=== PATIENT | female | born 1975 | race Two or more races ===

== ENCOUNTER 2023-03-03 12:41 | Emergency (ER) | payer OTHER, SELFPAY ==
--- NOTE | ~2023-03-03 | XR_ITS ---
XR finger 5th LT min 2V DATE: 03/03/2023 13:21 INDICATION: Injury 2 days ago. Pain and swelling of the fifth digit TECHNIQUE: 4 views COMPARISON: 03/03/2023 ( FINDINGS: There is a linear intra-articular fracture of the base of the distal phalanx of the fifth d igit, with less than 1 mm dorsal displacement, no medial or lateral displacement, no significant angu lation. No other fracture or dislocation of the fifth digit is detected. IMPRESSION: Linear intra-articular fracture of the base of the distal phalanx of the fifth digit Reviewed, dictated and finalized at location A. IMPRESSION: Linear intra-articular fracture of the base of the distal phalanx o f the fifth digit
--- NOTE | ~2023-03-03 | XR_ITS ---
XR hand LT min 3V DATE: 03/03/2023 13:22 INDICATION: Injury 2 days ago. Pain and swelling of fifth digit TECHNIQUE: 3 views of left hand COMPARISON: None FINDINGS: There is a linear intra-articular fracture of the base of the distal findings of the fifth digit with less than a millimeter dorsal displacement. No other fracture or dislocation. IMPRESSION: Linear intra-articular fracture of the base of the distal phalanx of the fifth digit Reviewed, dictated and finalized at location A. IMPRESSION: Linear intra-articular fracture of the base of the distal phalanx o f the fifth digit
[2023-03-03 12:50] VITALS: BP 125/73; PULSE 81; RESP 16; TEMP 36.4; O2SAT 99
--- NOTE | 2023-03-03 14:05 | ED.UPPEXIN ---
HPI - Extremity Injury (Upper) General Chief Complaint: Extremity Injury, Upper Stated Complaint: left hand injury Time Seen by Provider: 03/03/23 13:26 Source: patient and RN notes reviewed Mode of arrival: ambulatory Limitations: no limitations History of Present Illness HPI narrative: This is a 48 year old female left hand dominant who presents for evaluation of left hand pain and swelling. Patient states 2 days ago she accidentally fell onto her hands. She has been having bruising and swelling to her left hand. She also notices the worst pain is to her left pinkie. She denies hitting her head or LOC. She takes plavix for history of CVA few years ago. Related Data Allergies Allergy/AdvReac Type Severity Reaction Status Date / Time No Known Allergies Allergy Verified 03/03/23 13:41 Review of Systems Constitutional: Constitutional: Denies weakness Cardiovascular: Cardiovascular: Denies syncope, Denies rapid heart rate, Denies irregular heart rhythm, Denies leg edema and Denies dyspnea Respiratory: Respiratory: Denies chest congestion, Denies hemoptysis, Denies excessive phlegm production and Denies dyspnea Gastrointestinal: Gastrointestinal: Denies abdominal pain, Denies hematochezia, Denies diarrhea and Denies vomiting Genitourinary: Genitourinary: Denies hematuria and Denies dysuria Musculoskeletal: Musculoskeletal: Reports arthralgias, Denies joint swelling, Denies loss of height and Denies muscle weakness Neurologic: Denies syncope, Denies focal weakness and Denies weakness PMFSH Past Medical History Medical History (Updated 03/03/23 @ 21:44 by Molly Liz MD) CVA (cerebral vascular accident) Surgical History Surgical History (Updated 03/03/23 @ 21:44 by Molly Liz MD) No pertinent past surgical history Social History Social History (Updated 03/03/23 @ 21:44 by Molly Liz MD) Smoking status: Never smoker Exam Const: General: no acute distress and alert Nutritional Appearance: well nourished Orientation/consciousness: patient oriented x3 Limitations: no limitations HENMT: Head: normal to inspection Face and sinus: normal facial exam Eyes: EOM: EOMs intact bilaterally Resp: Effort & Inspection: normal respiratory effort Neuro: General: patient oriented x3, moves all extremities and CN's II-XI intact bilaterally Extrem: Other: left hand - all fingers and hand is swollen, bruising noted to left palm, TTP left 5th distal finger Psych: Mental Status: mental status grossly normal Affect: normal affect Attitude: cooperative Course Reevaluation(s) Reevaluation #1: I Discussed with patient that she was found to have 5th finger distal phalanx fracture. She was placed in metal splint. I discussed icing and elevating to reduce swelling. She denies any pain so nothing for pain given. She denies any questions or concerns. I discussed discharge plan and follow up Date: 03/03/23 Time: 14:20 Vital Signs Vital signs: Vital Signs Temperature 97.6 F 03/03/23 12:50 Pulse Rate 81 03/03/23 12:50 Respiratory Rate 16 03/03/23 12:50 Blood Pressure 125/73 03/03/23 12:50 Pulse Oximetry 99 03/03/23 12:50 Oxygen Delivery Room Air 03/03/23 12:50 Temperature 97.6 F 03/03/23 12:50 Pulse Rate 81 03/03/23 12:50 Respiratory Rate 16 03/03/23 12:50 Blood Pressure 125/73 03/03/23 12:50 Pulse Oximetry 99 03/03/23 12:50 Oxygen Delivery Room Air 03/03/23 12:50 MDM - Extremity Injury (Upper) Differential Diagnosis Differential diagnosis: Likely finger sprain, dislocation of finger, fracture of hand and other (finger fracture) Imaging Data Radiologist's impression: ITS Impressions Finger X-Ray 03/03/23 13:42 IMPRESSION: Linear intra-articular fracture of the base of the distal phalanx of the fifth digit Hand X-Ray 03/03/23 13:45
== END 2023-03-03 14:35 | disposition home or self-care (01) ==
PROVIDERS: Emergency Provider General Practice
DX: S62.637A Displaced fracture of distal phalanx of left little finger, initial encounter for closed fracture (principal); S60.222A Contusion of left hand, initial encounter; Z86.73 Personal history of transient ischemic attack (TIA), and cerebral infarction without residual deficits; Z79.02 Long term (current) use of antithrombotics/antiplatelets; W19.XXXA Unspecified fall, initial encounter
CPT/HCPCS: 29130; 73130; 73140; 99283; 99284